=== PATIENT | female | born 1995 | race Caucasian/White ===

== ENCOUNTER 2021-11-15 22:07 | Emergency (ER) | payer MEDICAID, OTHER ==
[2021-11-15 22:27] VITALS: BP 117/73
--- NOTE | 2021-11-15 22:43 | ED Physician Documentation ---
PD HPI HEENT - Stated complaint Stated Complaint: FEVER,SORE THROAT - Chief complaint Chief Complaint: Heent - History obtained from History obtained from: Patient - History of Present Illness Timing - onset: Today (this morning) Timing - details: Gradual onset Pain level now: 8 Location: Throat Improves: Nothing Worsens: [place] Associated symptoms: Fever (Tmax 105.3) Similar symptoms before: Has not had sx before Recently seen: Not recently seen - Additional information Additional information: c/o high fever (Tmax 105.3) and sore throat since this morning. Took tylenol 2 PM Review of Systems Constitutional: reports: Fever, Myalgias Throat: reports: Sore throat Respiratory: denies: Dyspnea, Cough PD PAST MEDICAL HISTORY - Past Medical History Past Medical History: No - Past Surgical History Past Surgical History: Yes Ortho: Shoulder arthroplasty - Present Medications Home Medications: Ambulatory Orders Medication Instructions Recorded Confirmed Penicillin V Potassium 500 mg PO Q6HR #40 tablet 11/17/21 - Allergies Allergies/Adverse Reactions: Allergies Allergy/AdvReac Type Severity Reaction Status Date / Time No Known Drug Allergies Allergy Verified 01/27/16 15:58 - Social History Does the pt smoke?: No Smoking Status: Never smoker PD ED PE NORMAL - Vitals Vital signs reviewed: Yes - General General: Alert and oriented X 3, No acute distress, Well developed/nourished - HEENT HEENT: Moist mucous membranes - Neck Neck: Supple, no meningeal sign PD ED PE EXPANDED - HEENT HEENT: Pharyngeal erythema, Tonsillar exudate Results - Vitals Vitals: Oxygen O2 Source Room air - Labs Labs: Microbiology 11/15/21 22:50 Group A Strep Throat Culture - Final Throat Beta Hemolytic Strep Group C Laboratory Tests 11/15/21 11/15/21 22:50 22:50 Nasal Adenovirus (PCR) DETECTED A Nasal B. parapertussis DNA (PCR) NOT DETECTED Nasal Coronavir 229E PCR NOT DETECTED Nasal Coronavir HKU1 PCR NOT DETECTED Nasal Coronavir NL63 PCR NOT DETECTED Nasal Coronavir OC43 PCR NOT DETECTED Nasal Enterovir/Rhinovir PCR NOT DETECTED Nasal Influenza B PCR NOT DETECTED Nasal Influenza A PCR NOT DETECTED Nasal Parainfluen 1 PCR NOT DETECTED Nasal Parainfluen 2 PCR NOT DETECTED Nasal Parainfluen 3 PCR NOT DETECTED Nasal Parainfluen 4 PCR NOT DETECTED Nasal RSV (PCR) NOT DETECTED Nasal B.pertussis DNA PCR NOT DETECTED Nasal C.pneumoniae (PCR) NOT DETECTED Hang Human Metapneumo PCR NOT DETECTED Nasal M.pneumoniae (PCR) NOT DETECTED Nasal SARS-CoV-2 (PCR) NOT DETECTED Group A Strep Rapid Negative PD MEDICAL DECISION MAKING - ED course Complexity details: reviewed results, re-evaluated patient, considered differential, d/w patient ED course: rapid strep negative. given 10mg PO decadron, results discussed, return precautions reviewed. Departure - Departure Disposition: 01 Home, Self Care Clinical Impression: Pharyngitis Qualifiers: Pharyngitis/tonsillitis etiology: unspecified etiology Qualified Code(s): J02.9 - Acute pharyngitis, unspecified Condition: Good Instructions: ED Pharyngitis Viral Prescriptions: Penicillin V Potassium 500 mg PO Q6HR #40 tablet Comments: Your strep test was negative; a culture will next be performed on the sample and in the next 1-2 days, if it is positive you will get a phone call and a prescription for an antibiotic will be sent to your pharmacy of choice. Notably, your nasal swab, although negative for COVID and influenza, is POSITIVE for ADENOVIRUS. This is considered a "common cold" virus, and there is no specific/targeted treatment for this (antibiotics, for example, do not work on viruses). You should rest, stay hydrated, take ibuprofen as needed per label instructions. Forms: Activity restrictions Discharge Date/Time: 11/16/21 00:37
[2021-11-15] MEDS ORDERED: DEXAMETHASONE 10 MG/ML VIAL PO STA (23:02)
[2021-11-15] MEDS ORDERED: CHERRY SYRUP 10 ML UDC PO ONE (23:02)
[2021-11-15] MEDS ORDERED: ACETAMINOPHEN 325 MG TABLET PO STA (23:02)
[2021-11-15 23:10] LABS: RAPID STREP SCREEN Negative (Negative)
[2021-11-15 23:48] LABS: B. PARAPERTUSSIS- RESP PCR PAN NOT DETECTED; B. PERTUSSIS- RESP PCR PANEL NOT DETECTED; C. PNEUMONIAE- RESP PCR PANEL NOT DETECTED; CORONAVIRUS 229E-RESP PCR NOT DETECTED; CORONAVIRUS HKU1-RESP PCR NOT DETECTED; CORONAVIRUS NL63-RESP PCR NOT DETECTED; CORONAVIRUS OC43-RESP PCR NOT DETECTED; HUMAN METAPNEUMOVIRUS NOT DETECTED; INFLUENZA A- RESP PCR PANEL NOT DETECTED; INFLUENZA B - RESP PCR PANEL NOT DETECTED; M. PNEUMONIAE- RESP PCR PANEL NOT DETECTED; PARAINFLUENZA VIRUS 1 NOT DETECTED; PARAINFLUENZA VIRUS 2 NOT DETECTED; PARAINFLUENZA VIRUS 3 NOT DETECTED; PARAINFLUENZA VIRUS 4 NOT DETECTED; RHINOVIRUS/ENTEROVIRUS NOT DETECTED; RSV- RESP PCR PANEL NOT DETECTED; SARS-CoV-2 -RESP PCR PANEL NOT DETECTED
--- NOTE | 2021-11-17 14:45 | ED Physician Documentation ---
ED Addendum - Addendum Addendum: 11/17/21 14:43 Patient's throat culture is positive for group C beta-hemolytic strep. We will place on penicillin for home. Prescriptions were sent to [facility] in [place]. Departure - Departure Disposition: Home, Self Care Clinical Impression: Pharyngitis Qualifiers: Pharyngitis/tonsillitis etiology: unspecified etiology Qualified Code(s): J02.9 - Acute pharyngitis, unspecified Condition: Good Instructions: ED Pharyngitis Viral Prescriptions: Penicillin V Potassium 500 mg PO Q6HR #40 tablet Comments: Your strep test was negative; a culture will next be performed on the sample and in the next 1-2 days, if it is positive you will get a phone call and a prescription for an antibiotic will be sent to your pharmacy of choice. Notably, your nasal swab, although negative for COVID and influenza, is POSITIVE for ADENOVIRUS. This is considered a "common cold" virus, and there is no specific/targeted treatment for this (antibiotics, for example, do not work on viruses). You should rest, stay hydrated, take ibuprofen as needed per label instructions. Forms: Activity restrictions Discharge Date/Time: 11/16/21 00:37
== END 2021-11-16 00:37 | disposition home or self-care (01) ==
LOC: ED 22:07
DX: J02.9 Acute pharyngitis, unspecified (principal); J02.0 Streptococcal pharyngitis; B95.4 Other streptococcus as the cause of diseases classified elsewhere; Z20.822 Contact with and (suspected) exposure to COVID-19
CPT/HCPCS: 87070; 87077; 87430; 87633; 99282; 99283; A9270